=== PATIENT | female | born 1940 | race African-American/Black ===

== ENCOUNTER 2016-10-31 15:32 | Emergency (ER) | payer OTHER ==
[2016-10-31 15:39] VITALS: PULSE 79; TEMP 98.2; BMI 18.6
--- NOTE | 2016-10-31 16:43 | PDOC ---
History of Present Illness - General Chief Complaint: Edema Stated Complaint: SWELLING IN RT LEG/SENT BY PMD Time Seen by Provider: 10/31/16 16:41 History Source: Patient Exam Limitations: No Limitations - History of Present Illness Initial Comments: 10/31/16 16:42 CHIEF COMPLAINT: Leg swelling HISTORY OF PRESENT ILLNESS: This is a 76 year old female with a history of HTN, HLD, and advanced dementia brought in by her daughter for evaluation of several weeks of progressive RLE edema. She has not had any apparent shortness of breath , chest pain, or any other symptoms. V/s on arrival are unremarkable. REVIEW OF SYSTEMS: Limited by dementia PHYSICAL EXAM: GENERAL: The patient is awake, alert, oriented x 0 (baseline). HEAD: Normal with no signs of trauma. ENT: Pupils equal, round and reactive to light, extraocular movements intact, sclera anicteric, conjunctiva clear. Neck supple. LUNGS: Clear to auscultation bilaterally. Normal excursion. No respiratory distress or use of accessory muscles. CV: RRR, S1/S2, no MRG. Cap refill < 2 sec. ABDOMEN: Soft, non-distended, non-tender. EXTREMITIES: RLE 2+ pitting edema, mild calf tenderness. NEUROLOGICAL: Normal speech, normal gait. CN II-XII grossly intact. PSYCH: Normal mood, normal affect. SKIN: Warm, dry, normal turgor, no rashes or lesions noted. Past History - Past Medical History Allergies/Adverse Reactions: Allergies Allergy/AdvReac Type Severity Reaction Status Date / Time codeine Allergy Verified 10/31/16 15:39 Home Medications: Ambulatory Orders Aspirin [Ecotrin] 81 mg PO DAILY 05/13/15 Anemia: No Asthma: No Cancer: No Cardiac Disorders: Yes CVA: No COPD: No CHF: No Dementia: Yes Diabetes: No Dialysis: No GI Disorders: No Disorders: No HTN: Yes Hypercholesterolemia: No HIV: No Kidney Stones: No Liver Disease: No Psychiatric Problems: (dementia, non-verbal) Seizures: No Thyroid Disease: No Other medical history: DVT - Surgical History Abdominal Surgery: No Appendectomy: No Cardiac Surgery: No Cholecystectomy: No Lung Surgery: No Neurologic Surgery: No Orthopedic Surgery: No - Immunization History Immunization Up to Date: Yes - Psycho/Social/Smoking Cessation Hx Anxiety: No Suicidal Ideation: No Smoking Status: No Smoking History: Never smoked Have you smoked in the past 12 months: Yes Number of Cigarettes Smoked Daily: 0 Information on smoking cessation initiated: No Hx Alcohol Use: No Drug/Substance Use Hx: No Substance Use Type: None Hx Substance Use Treatment: No *Physical Exam - Vital Signs Last Vital Signs Temp Pulse Resp BP Pulse Ox 98.2 F 79 19 138/78 95 10/31/16 15:35 10/31/16 15:35 10/31/16 15:35 10/31/16 15:35 10/31/16 15:35 ED Treatment Course - LABORATORY CBC & Chemistry Diagram: 10/31/16 17:30 10/31/16 17:30 Medical Decision Making - Medical Decision Making 10/31/16 19:19 A/P: 76 year old female with unilateral LE edema. 1. Basic labs 2. Duplex vascular u/s to r/o DVT U/s reviewed and interpreted by radiology. Will dc with PCP followup and return precautions. *DC/Admit/Observation/Transfer Diagnosis at time of Disposition: Dependent edema, Edema of right lower extremity - Discharge Dispostion Admit: No - Referrals Referrals: Renato Martinez MD [Primary Care Provider] - 3 days - Patient Instructions Printed Discharge Instructions: DI for Dependent Edema Additional Instructions: -Ms. Pugh was seen today for leg swelling. Her ultrasound did not show any blood clots. -Rest with the leg elevated. -Try compression stockings to help relieve the swelling. -Return here for shortness of breath or any other new or concerning symptoms.
[2016-10-31] MEDS ORDERED: ACETAMINOPHEN 325 MG TABLET (FP) PO ONE (17:15)
[2016-10-31] MEDS ORDERED: ACETAMINOPHEN 160 MG/5 ML 473ML BULK BOTTLE ONE (17:34)
[2016-10-31 17:35] LABS: BASOPHIL 0.9 % (0-2.0); EOSINOPHIL 1.5 % (0-4.5); MCH 29.7 pg (25.7-33.7); MCHC 31.8 g/dl (32.0-36.0); MEAN CELL VOLUME 93.4 fl (80-96); MEAN PLT VOLUME 9.5 fl (7.5-11.1); NEUTROPHILS 48.5 % (42.8-82.8); PLATELET COUNT 201 K/MM3 (134-434); WHITE BLOOD COUNT 4.1 K/mm3 (4.0-10.0)
[2016-10-31 17:53] LABS: INR 0.95 (0.82-1.09); PROTHROMBIN TIME (PATIENT) 10.4 SEC (9.98-11.88)
[2016-10-31 18:00] LABS: ALBUMIN 3.1 g/dl (3.4-5.0); ALK PHOS 69 U/L (45-117); ANION GAP 3 (8-16); BILIRUBIN,TOTAL 0.3 mg/dL (0.2-1.0); CALCIUM 9.6 mg/dL (8.5-10.1); CO2 32 mmol/L (21-32); GLUCOSE,RANDOM 81 mg/dL (74-106); SGOT/AST 14 U/L (15-37); SGPT/ALT 20 U/L (12-78); TOT PROT 7.1 g/dl (6.4-8.2)
[2016-10-31 19:45] VITALS: BP 160/86
== END 2016-10-31 19:50 | disposition home or self-care (01) ==
LOC: JER 15:32
DX: R60.0 Localized edema (principal); I10 Essential (primary) hypertension; E78.5 Hyperlipidemia, unspecified; F03.90 Unspecified dementia, unspecified severity, without behavioral disturbance, psychotic disturbance, mood disturbance, and anxiety; Z88.5 Allergy status to narcotic agent; Z79.82 Long term (current) use of aspirin; Z86.718 Personal history of other venous thrombosis and embolism
CPT/HCPCS: 36415; 80053; 85025; 85610; 93971-TC; 99282-25

== ENCOUNTER 2018-03-08 13:50 | Inpatient (IN) | payer OTHER ==
--- NOTE | 2018-03-08 14:02 | PDOC ---
History of Present Illness - General History Source: Family Exam Limitations: Dementia - History of Present Illness Initial Comments: 03/08/18 14:41 CC: AMS HPI/ROS performed with daughter, pt is nonverbal at baseline. HPI: 77 year old female with PMH HTN, DVT, dementia BIBA to ED by daughter ( piercer operator) for AMS. Per daughter pt's baseline is alert but orientedx0, nonverbal, ambulates with assistance. Daughter stated that over the last week pt has become more generally weak and this morning at 0600 pt was more sleepy and less alert. Daughter states pt has multiple areas of skin breakdown, bilateral hips and sacrum. Pt lives at home with daughter. Daughter stated last week while being assisted by pt's son, the son and pt fell to the ground, daughter was not present and is unsure of head injury/LOC. <Sadie Lee - Last Filed: 03/10/18 01:54> <Lizzette Marie - Last Filed: 03/12/18 09:25> - General Chief Complaint: Altered Mental Status Stated Complaint: AMS Time Seen by Provider: 03/08/18 14:02 Past History - Past Medical History Anemia: No Asthma: No Cancer: No Cardiac Disorders: Yes CVA: No COPD: No CHF: No Dementia: Yes Diabetes: No Dialysis: No GI Disorders: No Disorders: No HTN: Yes Hypercholesterolemia: No Kidney Stones: No Liver Disease: No Psychiatric Problems: (dementia, non-verbal) Seizures: No Thyroid Disease: No - Surgical History Abdominal Surgery: No Appendectomy: No Cardiac Surgery: No Cholecystectomy: No Lung Surgery: No Neurologic Surgery: No Orthopedic Surgery: No - Immunization History Immunization Up to Date: Yes - Suicide/Smoking/Psychosocial Hx Smoking Status: No Smoking History: Never smoked Have you smoked in the past 12 months: Yes Number of Cigarettes Smoked Daily: 0 Hx Alcohol Use: No Drug/Substance Use Hx: No Substance Use Type: None Hx Substance Use Treatment: No <Sadie Lee - Last Filed: 03/10/18 01:54> <Lizzette Marie - Last Filed: 03/12/18 09:25> - Past Medical History Allergies/Adverse Reactions: Allergies Allergy/AdvReac Type Severity Reaction Status Date / Time codeine Allergy Verified 10/31/16 15:39 Home Medications: Ambulatory Orders Aspirin [Ecotrin] 81 mg PO DAILY 05/13/15 Review of Systems - Review of Systems Able to Perform ROS?: Yes Comments:: 03/08/18 14:45 Unable to perform complete ROS, pt is nonverbal. <Sadie Lee - Last Filed: 03/10/18 01:54> *Physical Exam - Physical Exam Comments: 03/08/18 14:47 Constitutional: contracted. cachectic. HEENT: head is normocephalic, atraumatic. PERRLA. Neck: supple. Full ROM. no midline c-spine tenderness. Heart: regular rhythm. no murmurs, rubs or gallops. Lungs: clear to auscultation bilaterally. Abdomen: soft, nontender. normal bowel sounds. no rebound, guarding, masses. Back: no midline T-spine or L-spine tenderness. Extremities: Peripheral pulses intact. No lower extremity edema. Neurological: CN 2-12 grossly intact. Moves all four extremities. Psych: somnolent, but arousable to touch. nonverbal. Skin: right hip stage 1 ulcer. lef thip stage 1 ulcer. sacrum two stage 1 ulcers. <Sadie Lee - Last Filed: 03/10/18 01:54> - Vital Signs Last Vital Signs Temp Pulse Resp BP Pulse Ox 98.0 F 67 20 150/68 97 03/12/18 06:00 03/12/18 06:00 03/12/18 06:00 03/12/18 06:00 03/11/18 21:00 <Lizzette Marie - Last Filed: 03/12/18 09:25> Moderate Sedation - Procedure Monitoring Vital Signs: Procedure Monitoring Vital Signs Temperature 98.0 F 03/12/18 06:00 Pulse Rate 67 03/12/18 06:00 Respiratory Rate 20 03/12/18 06:00 Blood Pressure 150/68 03/12/18 06:00 O2 Sat by Pulse Oximetry (%) 97 03/11/18 21:00 <Lizzette Marie - Last Filed: 03/12/18 09:25> ED Treatment Course - LABORATORY CBC & Chemistry Diagram: 03/08/18 14:45 03/08/18 14:45 <Sadie Lee - Last Filed: 03/10/18 01:54> - LABORATORY CBC & Chemistry Diagram: 03/09/18 05:15 03/09/18 05:15 - ADDITIONAL ORDERS Additional order review: 03/08/18 14:45 Blood Culture - Preliminary Blood - Peripheral Venous NO GROWTH OBTAINED AFTER 72 HOURS, INCUBATION TO CONTINUE FOR 2 DAYS. 03/08/18 14:45 Blood Culture - Preliminary Blood - Peripheral Venous NO GROWTH OBTAINED AFTER 72 HOURS, INCUBATION TO CONTINUE FOR 2 DAYS. 03/08/18 18:35 Urine Culture - Final Urine - Urine [place] Escherichia Coli 03/08/18 14:45 RBC 4.49 MCV 93.4 MCHC 31.4 L RDW 12.4 MPV 9.5 Neutrophils % 56.6 Lymphocytes % 30.5 Monocytes % 9.6 Eosinophils % 2.5 Basophils % 0.8 - Medications Given in the ED: ED Medications Discontinued Medications Generic Name Dose Route Start Last Admin Trade Name Freq PRN Reason Stop Dose Admin Heparin Sodium (Porcine) 5,000 unit 03/09/18 10:00 03/09/18 22:48 Heparin - SQ 5,000 unit BID LINDSEY Administration Sodium Chloride 1,000 mls @ 500 mls/hr 03/08/18 14:40 03/08/18 16:01 Normal Saline - IV 03/08/18 16:39 500 mls/hr ASDIR STA Administration Ceftriaxone Sodium 2 gm in 50 mls @ 100 mls/hr 03/08/18 19:24 03/08/18 19:36 Ceftriaxone 2 Gm-D5w Bag IVPB 03/08/18 19:53 100 mls/hr ONCE ONE Administration Protocol Ceftriaxone Sodium 1 gm/ 50 mls @ 100 mls/hr 03/09/18 10:00 03/09/18 10:23 Dextrose IVPB 100 mls/hr DAILY LINDSEY Administration Protocol <Lizzette Marie - Last Filed: 03/12/18 09:25> Medical Decision Making - Medical Decision Making 03/08/18 14:49 MDM: Initial Vital Signs Pulse Resp BP Pulse Ox 78 16 150/89 97 03/08/18 14:00 03/08/18 14:00 03/08/18 14:00 03/08/18 14:00 No tachycardia. No tachypnea. Mild hypertension. No hypoxia on room air. Labs ordered: CBC, CMP, coags, cardiac enzymes. Imaging ordered: CXR, CT head, CT cervical spine. Medications ordered: 500 cc normal saline bolus. EKG performed at 1442: rate 66, regular rhythm with one PAC, normal axis, flipped T in V4/V5/V6/I. CBC WBC 4.6 K/mm3 (4.0-10.0) 03/08/18 14:45 RBC 4.49 M/mm3 (3.60-5.2) 03/08/18 14:45 Hgb 13.2 GM/dL (10.7-15.3) 03/08/18 14:45 Hct 41.9 % (32.4-45.2) 03/08/18 14:45 MCV 93.4 fl (80-96) 03/08/18 14:45 MCH 29.3 pg (25.7-33.7) 03/08/18 14:45 MCHC 31.4 g/dl (32.0-36.0) L 03/08/18 14:45 RDW 12.4 % (11.6-15.6) 03/08/18 14:45 Plt Count 213 K/MM3 (134-434) 03/08/18 14:45 MPV 9.5 fl (7.5-11.1) 03/08/18 14:45 Absolute Neuts (auto) 2.6 K/mm3 (1.5-8.0) 03/08/18 14:45 Neutrophils % 56.6 % (42.8-82.8) 03/08/18 14:45 Lymphocytes % 30.5 % (8-40) 03/08/18 14:45 Monocytes % 9.6 % (3.8-10.2) 03/08/18 14:45 Eosinophils % 2.5 % (0-4.5) 03/08/18 14:45 Basophils % 0.8 % (0-2.0) 03/08/18 14:45 Nucleated RBC % 0 % (0-0) 03/08/18 14:45 No leukocytosis. No anemia. No thrombocytopenia. CMP Sodium 142 mmol/L (136-145) 03/08/18 14:45 Potassium 4.5 mmol/L (3.5-5.1) 03/08/18 14:45 Chloride 109 mmol/L (98-107) H 03/08/18 14:45 Carbon Dioxide 24 mmol/L (21-32) 03/08/18 14:45 Anion Gap 8 MMOL/L (8-16) 03/08/18 14:45 BUN 13 mg/dL (7-18) 03/08/18 14:45 Creatinine 0.8 mg/dL (0.55-1.3) 03/08/18 14:45 Creat Clearance w eGFR > 60 (>60) 03/08/18 14:45 Random Glucose 81 mg/dL (74-106) 03/08/18 14:45 Lactic Acid 1.4 mmol/L (0.4-2.0) 03/08/18 14:45 Calcium 9.2 mg/dL (8.5-10.1) 03/08/18 14:45 Magnesium 2.1 mg/dL (1.8-2.4) 03/08/18 14:45 Total Bilirubin 0.6 mg/dL (0.2-1) 03/08/18 14:45 AST 22 U/L (15-37) 03/08/18 14:45 ALT 13 U/L (13-61) 03/08/18 14:45 Alkaline Phosphatase 53 U/L (45-117) 03/08/18 14:45 Creatine Kinase 139 IU/L (26-192) 03/08/18 14:45 Troponin I < 0.02 ng/ml (0.00-0.05) 03/08/18 14:45 Total Protein 7.0 g/dl (6.4-8.2) 03/08/18 14:45 Albumin 2.8 g/dl (3.4-5.0) L 03/08/18 14:45 No clinically concerning electrolyte abnormalities. No transaminitis. No JAELYN. Normal cardiac enzymes. No clinically concerning transaminitis. No lactic acidosis. 03/08/18 18:10 Nurse reported pt is catheterized, but no urine has been expressed. Fluids running. 03/08/18 18:32 CT head report: no intracranial bleed or depressed skull fracture. ventriculomegaly with normal fourth ventricle and prominent sulcal dilation, likely representing cerebral atrophy. probable associated periventricular white matter small vessel ischemic disease. CXR my read: no infiltrate. no pneumothorax. no blunted costophrenic angles. Knee XR my read: no fracture/dislocation. joint effusion noted. Pelvis XR my read: no fracture/dislocation. 03/08/18 18:58 CT cervical spine report: no fracture. 03/08/18 19:16 Urine Test Results Urine Color Yellow 03/08/18 18:35 Urine Appearance Slcloudy 03/08/18 18:35 Urine pH 5.0 (5.0-8.0) 03/08/18 18:35 Ur Specific [place] 1.018 (1.010-1.035) 03/08/18 18:35 Urine Protein Negative (NEGATIVE) 03/08/18 18:35 Urine Glucose (UA) Negative (NEGATIVE) 03/08/18 18:35 Urine Ketones Trace (NEGATIVE) H 03/08/18 18:35 Urine Blood 1+ (NEGATIVE) H 03/08/18 18:35 Urine Nitrite Positive (NEGATIVE) 03/08/18 18:35 Urine Bilirubin Negative (<2.0 mg/dL) 03/08/18 18:35 Ur Leukocyte Esterase 2+ (NEGATIVE) H 03/08/18 18:35 WBC 77 Pt has UTI - Ceftriaxone 1 g ordered. 03/08/18 19:37 Results explained to pt's daughter, who agrees with the plan for care, admission for IV antibiotics and monitoring. Pt to be admitted to Dr. Wellington, who covers for Dr. Renato Martinez. Dr. Wellington paged. <Sadie Lee - Last Filed: 03/10/18 01:54> *DC/Admit/Observation/Transfer - Discharge Dispostion Decision to Admit order: Yes <Sadie Lee - Last Filed: 03/10/18 01:54> <Lizzette Marie - Last Filed: 03/12/18 09:25> Diagnosis at time of Disposition: Urinary tract infection Qualifiers: Urinary tract infection type: site unspecified Hematuria presence: without hematuria Qualified Code(s): N39.0 - Urinary tract infection, site not specified Altered mental status Qualifiers: Altered mental status type: unspecified Qualified Code(s): R41.82 - Altered mental status, unspecified - Discharge Dispostion Condition at time of disposition: Stable
[2018-03-08 14:05] VITALS: BMI 18.3
[2018-03-08] MEDS ORDERED: SODIUM CHLORIDE 1,000 ML IV STA (14:40)
--- NOTE | 2018-03-08 15:29 | PDOC ---
Attending Attestation - Resident Resident Name: Sadie Lee - ED Attending Attestation I have performed the following: I have examined & evaluated the patient, The case was reviewed & discussed with the resident, I agree w/resident's findings & plan, Exceptions are as noted - HPI HPI: 77 yo F history HTN, DVT, dementia BIBEMS by daughter for c/o AMS. Patient is alert and nonverbal at baseline. She walks with assistance, but this past week she has been weaker, had a fall. Lives with daughter. - Physicial Exam PE: GENERAL: Awake, alert, no acute distress. Nonverbal. HEAD: No signs of trauma EYES: PERRLA, EOMI, sclera anicteric, conjunctiva clear ENT: Auricles normal inspection, hearing grossly normal, nares patent, oropharynx clear without exudates. Dry mucosa NECK: Normal ROM, supple, no lymphadenopathy, JVD, or masses LUNGS: Breath sounds equal, clear to auscultation bilaterally. No wheezes, and no crackles HEART: Regular rate and rhythm, normal S1 and S2, no murmurs, rubs or gallops ABDOMEN: Soft, nontender, normoactive bowel sounds. No guarding, no rebound. No masses EXTREMITIES: Normal range of motion, no edema. No clubbing or cyanosis. No cords, erythema, or tenderness NEUROLOGICAL: Cranial nerves II through XII grossly intact. Remainder of exam limited by mental status. SKIN: Warm, Dry, normal turgor. - Medical Decision Making Pt with AMS, increased weakness from baseline. Will obtain AMS workup including CTH (as well as c-spine due to recent fall), CXR, UA, labs.
[2018-03-08 15:37] LABS: BASO % 0.8 % (0-2.0); EOS % 2.5 % (0-4.5); HEMATOCRIT 41.9 % (32.4-45.2); HEMOGLOBIN 13.2 GM/dL (10.7-15.3); LYMPH % 30.5 % (8-40); MCH 29.3 pg (25.7-33.7); MCHC 31.4 g/dl (32.0-36.0); MEAN CELL VOLUME 93.4 fl (80-96); MEAN PLT VOLUME 9.5 fl (7.5-11.1); MONO % 9.6 % (3.8-10.2); NEUT % 56.6 % (42.8-82.8); PLATELET COUNT 213 K/MM3 (134-434); RBC 4.49 M/mm3 (3.60-5.2); RDW 12.4 % (11.6-15.6); WHITE BLOOD COUNT 4.6 K/mm3 (4.0-10.0)
[2018-03-08 15:48] LABS: INR 1.04 (0.83-1.09); PROTHROMBIN TIME (PATIENT) 12.3 SEC (9.7-13.0)
[2018-03-08 15:51] LABS: ACTIVATED PTT 33.2 SECONDS (25.2-36.5)
[2018-03-08 15:58] LABS: ALBUMIN 2.8 g/dl (3.4-5.0); ALK PHOS 53 U/L (45-117); ANION GAP 8 MMOL/L (8-16); BILIRUBIN,TOTAL 0.6 mg/dL (0.2-1); BLOOD UREA NITROGEN 13 mg/dL (7-18); CALCIUM 9.2 mg/dL (8.5-10.1); CHLORIDE 109 mmol/L (98-107); CO2 24 mmol/L (21-32); CREATININE 0.8 mg/dL (0.55-1.3); GLUCOSE,RANDOM 81 mg/dL (74-106); MAGNESIUM 2.1 mg/dL (1.8-2.4); POTASSIUM 4.5 mmol/L (3.5-5.1); SGOT/AST 22 U/L (15-37); SGPT/ALT 13 U/L (13-61); SODIUM 142 mmol/L (136-145)
[2018-03-08 19:15] LABS: URINE APPEARANCE SLCLOUDY; URINE BILIRUBIN NEGATIVE (<2.0 mg/dL); URINE COLOR YELLOW; URINE GLUCOSE (UA) NEGATIVE (NEGATIVE); URINE KETONE TRACE (NEGATIVE); URINE LEUK ESTERASE 2+ (NEGATIVE); URINE NITRITE POSITIVE (NEGATIVE); URINE PROTEIN NEGATIVE (NEGATIVE)
[2018-03-08 19:22] LABS: EPI CELLS RARE /HPF (FEW); URINE BACTERIA MANY /hpf (NONE SEEN); URINE MUCUS FEW
[2018-03-08] MEDS ORDERED: CEFTRIAXONE 2 GM-D5W BAG 2 GM/50 ML BAG IVPB ONE (19:24)
[2018-03-08] MEDS ORDERED: CEFTRIAXONE 2 GM/100 ML BAG IVPB ONE (19:30)
[2018-03-09] MEDS: DEXTROSE 5%-0.45% SALINE 1,000 ML IV SCH (03:23)
[2018-03-09 05:38] LABS: HEMATOCRIT 41.9 % (32.4-45.2); HEMOGLOBIN 13.2 GM/dL (10.7-15.3); MCH 29.4 pg (25.7-33.7); MCHC 31.6 g/dl (32.0-36.0); MEAN CELL VOLUME 93.2 fl (80-96); MEAN PLT VOLUME 9.3 fl (7.5-11.1); MONO % 8.3 % (3.8-10.2); NEUT % 53.7 % (42.8-82.8); PLATELET COUNT 197 K/MM3 (134-434); RBC 4.49 M/mm3 (3.60-5.2); RDW 12.5 % (11.6-15.6); WHITE BLOOD COUNT 4.6 K/mm3 (4.0-10.0)
[2018-03-09 06:24] LABS: ALBUMIN 2.7 g/dl (3.4-5.0); ALK PHOS 53 U/L (45-117); ANION GAP 7 MMOL/L (8-16); BILIRUBIN,TOTAL 0.4 mg/dL (0.2-1); BLOOD UREA NITROGEN 12 mg/dL (7-18); CHLORIDE 109 mmol/L (98-107); CO2 26 mmol/L (21-32); CREATININE 0.8 mg/dL (0.55-1.3); GLUCOSE,RANDOM 80 mg/dL (74-106); POTASSIUM 4.2 mmol/L (3.5-5.1); SGOT/AST 18 U/L (15-37); SGPT/ALT 12 U/L (13-61); SODIUM 143 mmol/L (136-145); TOT PROT 6.7 g/dl (6.4-8.2)
[2018-03-09] MEDS ORDERED: CEFTRIAXONE 1 GM in DEXTROSE 5%-WATER - 50 ML IVPB SCH (10:00)
[2018-03-09] MEDS: ASPIRIN COATED 81 MG TABLET.EC PO SCH (10:00)
[2018-03-09] MEDS ORDERED: CEFTRIAXONE 1 GM/50 ML BAG ONE (10:06)
[2018-03-09] MEDS ORDERED: HEPARIN NA (PORCINE) 5,000 UNITS/ML 1ML VIAL ONE (10:06)
[2018-03-09] MEDS: HEPARIN NA (PORCINE) 5,000 UNITS/ML 1ML VIAL SQ SCH ×2 (10:22→22:48)
--- NOTE | 2018-03-09 11:17 | ECHO ---
Name: ALEJANDRO GARNICA Exam:Adult Echocardiogram Study Date: 03/09/2018 08:24 AM Age: 77 yrs Reason For Study: HTN Height: 65 in Weight: 110 lb BSA: 1.5 m2 MMode/2D Measurements & Calculations IVSd: 1.5 cm Ao root diam: 2.8 cm LVIDd: 2.9 cm LA dimension: 2.8 cm LVIDs: 1.8 cm LVPWd: 0.89 cm EDV(Teich): 31.9 ml LAV (MOD-bp): 50.2 ml ESV(Teich): 9.9 ml Doppler Measurements & Calculations MV E max tiana: 58.2 cm/sec AI P1/2t: 688.1 msec MV A max tiana: 79.1 cm/sec MV E/A: 0.74 MV dec time: 0.13 sec AI max tiaan: 477.8 cm/sec PI end-d tiana: 126.2 cm/sec AI max P.3 mmHg AI dec slope: 203.4 cm/sec2 Procedure A complete two-dimensional transthoracic echocardiogram was performed (2D, M-mode, Doppler and color flow Doppler). Techically limited study. Left Ventricle The left ventricle is normal in size. There is mild concentric left ventricular hypertrophy. Basal se ptum appears moderately hypertrophied. Left ventricular systolic function is normal. Ejection Fraction = 6 5-70%. No regional wall motion abnormalities noted. Right Ventricle The right ventricle is normal size. The right ventricular systolic function is normal. Atria The left atrial size is normal. LA volume index is 33 ml/m2. Right atrial size is normal. Mitral Valve The mitral valve is normal in structure and function. There is mild mitral regurgitation. Tricuspid Valve The tricuspid valve is normal in structure and function. No tricuspid regurgitation. Aortic Valve There is mild aortic sclerosis.;. Mild aortic regurgitation. Pulmonic Valve The pulmonic valve is not well visualized. Mild pulmonic valvular regurgitation. Great Vessels The aortic root is normal size. Pericardium/Pleura There is no pericardial effusion. Interpretation Summary Techically limited study. The left ventricle is normal in size. There is mild concentric left ventricular hypertrophy. Basal septum appears moderately hypertrophied Left ventricular systolic function is normal. No regional wall motion abnormalities noted. Ejection Fraction = 65-70%. The right ventricular systolic function is normal. The left atrial size is normal. Right atrial size is normal. There is mild mitral regurgitation. There is mild aortic sclerosis.; Mild aortic regurgitation. Mild pulmonic valvular regurgitation. There is no pericardial effusion. Previous study is not available for comparison Ran Ching MD 03/09/2018 11:17 AM
--- NOTE | 2018-03-09 14:09 | HP ---
Admitting History and Physical - Admission History of Present Illness: Pt is a 77 y/o female w/ PMH significant for HTN, HLD, DVT and dementia. Pt was BIBEMS by daughter for c/o AMS. Patient is alert but is nonverbal at baseline. She ambulates with assistance, but this past week she has been weaker. Pt's daughter feels that there has been in a change in pt's baseline including lethargy since the am. Lisa also reports that pt had episode of falling at home but unsure if there was only LOC/head trauma. - Past Medical History ART MANAGER: Yes: Alzheimer's Cardiovascular: Yes: HTN, Hyperlipdemia Musculoskeletal: Yes: Other (Mandibular fx) Endocrine: Yes: Osteopenia - Past Surgical History Past Surgical History: Yes: None - Smoking History Smoking history: Never smoked Have you smoked in the past 12 months: Yes Aproximately how many cigarettes per day: 0 - Alcohol/Substance Use Hx Alcohol Use: No - Social History ADL: Family Assistance Home Medications - Allergies Allergies/Adverse Reactions: Allergies Allergy/AdvReac Type Severity Reaction Status Date / Time codeine Allergy Verified 10/31/16 15:39 - Home Medications Home Medications: Ambulatory Orders Aspirin [Ecotrin] 81 mg PO DAILY 05/13/15 Family Disease History - Family Disease History Family History: Unable to Obtain Review of Systems Unable to obtain ROS, reason: Dementia Physical Examination Vital Signs: Vital Signs Temperature 98.9 F 03/09/18 11:03 Pulse Rate 73 03/09/18 07:02 Respiratory Rate 18 03/08/18 18:04 Blood Pressure 138/75 03/09/18 07:02 O2 Sat by Pulse Oximetry (%) 99 03/09/18 07:02 Constitutional: Yes: No Distress HENT: Yes: WNL Neck: Yes: WNL, Supple Cardiovascular: Yes: WNL, Regular Rate and Rhythm Respiratory: Yes: WNL, Regular, CTA Bilaterally Gastrointestinal: Yes: WNL, Normal Bowel Sounds, Soft Musculoskeletal: Yes: WNL Extremities: Yes: WNL Edema: No Neurological: Yes: Alert ...Motor Strength: WNL Labs: CBC, BMP 03/09/18 05:15 03/09/18 05:15 Problem List - Problems (1) Altered mental status Assessment/Plan: Ct scan head was unremarkable ?Cerebral dysfunction vs dementia Neuro consult Cont IV hydration R/O infectious encepalopathy PT eval Code(s): R41.82 - ALTERED MENTAL STATUS, UNSPECIFIED Qualifiers: (2) Urinary tract infection Assessment/Plan: Cont IV ceftriaxone Monitor cultures Code(s): N39.0 - URINARY TRACT INFECTION, SITE NOT SPECIFIED (3) Dementia Code(s): F03.90 - UNSPECIFIED DEMENTIA WITHOUT BEHAVIORAL DISTURBANCE Qualifiers: Dementia type: Alzheimer's disease Alzheimer's disease onset: unspecified onset Dementia behavioral disturbance: with behavioral disturbance Qualified Code(s): G30.9 - Alzheimer's disease, unspecified; F02.81 - Dementia in other diseases classified elsewhere with behavioral disturbance (4) Hypertension Assessment/Plan: Pt is not on any antihypertensives Will check echo Start norvasc Code(s): I10 - ESSENTIAL (PRIMARY) HYPERTENSION (5) Hyperlipidemia Assessment/Plan: Check lipid profile Code(s): E78.5 - HYPERLIPIDEMIA, UNSPECIFIED
--- NOTE | 2018-03-09 16:22 | CON.ID ---
Consult Consult Specialty:: infectious diseases Referred by:: Reason for Consultation:: ams,r/o infectious process - History of Present Illness Chief Complaint: ams History of Present Illness: patient awake but no history available from the patient which is obtained from the charts 77 y/o female w/ PMH significant for HTN, HLD, DVT and dementia. Pt was BIBEMS by daughter for c/o AMS. Patient is alert but is nonverbal at baseline. She ambulates with assistance, but this past week she has been weaker. Pt's daughter feels that there has been in a change in pt's baseline including lethargy since the am. Daughter also reports that pt had episode of falling at home but unsure if there was only LOC/head trauma. 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 Cardio/Vascular: Yes: HTN, Hyperlipdemia Musculoskeletal: Yes: Other (Mandibular fx) Endocrine: Yes: Osteopenia - Past Surgical History Past Surgical History: Yes: None - Alcohol/Substance Use Hx Alcohol Use: No - Smoking History Smoking history: Never smoked Have you smoked in the past 12 months: Yes Aproximately how many cigarettes per day: 0 - Social History ADL: Family Assistance Home Medications - Allergies Allergies/Adverse Reactions: Allergies Allergy/AdvReac Type Severity Reaction Status Date / Time codeine Allergy Verified 10/31/16 15:39 - Home Medications Home Medications: Ambulatory Orders Aspirin [Ecotrin] 81 mg PO DAILY 05/13/15 Review of Systems Unable to obtain ROS, reason: unable to obtain Physical Exam Vital Signs: Vital Signs Temperature 98.9 F 03/09/18 11:03 Pulse Rate 80 03/09/18 15:24 Respiratory Rate 16 03/09/18 15:24 Blood Pressure 162/93 03/09/18 15:24 O2 Sat by Pulse Oximetry (%) 98 03/09/18 15:24 Constitutional: Yes: Calm, Thin, Other Eyes: Yes: Conjunctiva Clear Cardiovascular: Yes: Regular Rate and Rhythm Respiratory: Yes: Regular, CTA Bilaterally Gastrointestinal: Yes: Normal Bowel Sounds, Soft Musculoskeletal: Yes: WNL Extremities: Yes: WNL Neurological: Yes: Alert, Confusion Psychiatric: Yes: Other Labs: CBC, BMP 03/09/18 05:15 03/09/18 05:15 Imaging - Results Chest X-ray: Report Reviewed, Image Reviewed Cat Scan: Report Reviewed, Image Reviewed Assessment/Plan Problem List - Problems (1) Altered mental status Code(s): R41.82 - ALTERED MENTAL STATUS, UNSPECIFIED Qualifiers: (2) Urinary tract infection Code(s): N39.0 - URINARY TRACT INFECTION, SITE NOT SPECIFIED (3) Dementia Code(s): F03.90 - UNSPECIFIED DEMENTIA WITHOUT BEHAVIORAL DISTURBANCE Qualifiers: Dementia type: Alzheimer's disease Alzheimer's disease onset: unspecified onset Dementia behavioral disturbance: with behavioral disturbance Qualified Code(s): G30.9 - Alzheimer's disease, unspecified; F02.81 - Dementia in other diseases classified elsewhere with behavioral disturbance (4) Hypertension Code(s): I10 - ESSENTIAL (PRIMARY) HYPERTENSION (5) Hyperlipidemia Code(s): E78.5 - HYPERLIPIDEMIA, UNSPECIFIED as far i thin this is probably due uti plan will start patient on abx await for cx report hydration rest as per the team
--- NOTE | 2018-03-09 21:36 | CONSULT ---
Consult - text type - Consultation Consultation Note: NEUROLOGY CONSULTATION is greatly appreciated: This 77 yo woman with HTN, Hyperlipidemia and severe dementia lives with her daughter. Apparently is non-verbal and walks with assistance only. Family relates a week of worsening alertness and level of function culminating in a fall on day of admission while ambulating with her son. In ED CT of head (reviewed): severe, diffuse atrophy and moderately severe, ex- vacuo, hydrocephalus. No traumatic changes. CT of C-spine (not yet reported) shows moderate degenerative changes without fractures or dislocations. Urine WBC's = 77. Started on ceftriaxone. NEETA: No evidence of external head trauma. - Coleman's. Early contractures both elbows and knees. Sacral decubitae. In diaper NEURO: Rest with eyes closed but awake and alert. Makes eye contact. Follows no commands. Brief gibberish speech. + Glabella, snout, suck, grasps (symmetrical). Full rivero to threat. Full roving EOM's. No facial. Gag present. Moves all 4's spontaneously and symmetrically. Symmetrical, Rigid, tone. Normal to brisk reflexes except AJ's. Downgoing toes. Withdraws all fours to pinch. IMP: Non-focal exam sig for severe, B/L cerebral dysfunction (OMS, Chronic) most c/w advanced Alzheimer's Disease. Recent worsening is due to Toxic-Metabolic Encephalopathy due to infection (UTI/decubitae). SUGGEST: Continue antibiotics and hydration. Review history of possible medication trials for dementia ( although doubt efficacy at this late stage). Check B12, TSH, RPR. May need SNF level of care. Thank you very much, Jarvis Franklin MD
[2018-03-10] MEDS: DEXTROSE 5%-0.45% SALINE 1,000 ML IV SCH ×2 (06:07→21:15)
[2018-03-10] MEDS: HEPARIN NA (PORCINE) 5,000 UNITS/ML 1ML VIAL SQ SCH ×3 (06:08→21:16)
[2018-03-10] MEDS ORDERED: cefTRIAXone SODIUM 1 GM VIAL ONE (09:54)
[2018-03-10] MEDS ORDERED: DEXTROSE 5%-WATER - 50 ML IVPB ONE (09:54)
[2018-03-10] MEDS: ASPIRIN COATED 81 MG TABLET.EC PO SCH (09:57)
[2018-03-10] MEDS: CEFTRIAXONE 1 GM in DEXTROSE 5%-WATER - 50 ML IVPB SCH (09:57)
[2018-03-10] MEDS: amLODIPine BESYLATE 2.5 MG TABLET (FP) PO SCH (09:57)
--- NOTE | 2018-03-10 14:17 | PN ---
Progress Note, Physician History of Present Illness: stable positive urine cx - Current Medication List Current Medications: Active Medications Amlodipine Besylate (Norvasc -) 2.5 mg PO DAILY [facility] Last Admin: 03/10/18 09:57 Dose: 2.5 mg Aspirin (Ecotrin -) 81 mg PO DAILY [facility] Last Admin: 03/10/18 09:57 Dose: 81 mg Heparin Sodium (Porcine) (Heparin -) 5,000 unit SQ TID [facility] Last Admin: 03/10/18 06:08 Dose: 5,000 unit Dextrose/Sodium Chloride (D5-1/2ns -) 1,000 mls @ 75 mls/hr IV ASDIR [facility] Last Admin: 03/10/18 06:07 Dose: 75 mls/hr Ceftriaxone Sodium 1 gm/ (Dextrose) 50 mls @ 100 mls/hr IVPB DAILY [facility]; Protocol Last Admin: 03/10/18 09:57 Dose: 100 mls/hr - Objective Vital Signs: Vital Signs Temperature 98.3 F 03/10/18 09:48 Pulse Rate 67 03/10/18 09:48 Respiratory Rate 18 03/10/18 09:48 Blood Pressure 137/65 03/10/18 09:48 O2 Sat by Pulse Oximetry (%) 97 03/10/18 09:00 Constitutional: Yes: No Distress, Calm Cardiovascular: Yes: Regular Rate and Rhythm Respiratory: Yes: Regular, CTA Bilaterally Gastrointestinal: Yes: Normal Bowel Sounds, Soft Musculoskeletal: Yes: WNL Extremities: Yes: WNL Neurological: Yes: Alert, Other Psychiatric: Yes: Alert Labs: CBC, BMP 03/09/18 05:15 03/09/18 05:15 INR, PTT INR 1.04 (0.83-1.09) 03/08/18 14:45 Assessment/Plan Problem List - Problems (1) Altered mental status Code(s): R41.82 - ALTERED MENTAL STATUS, UNSPECIFIED Qualifiers: (2) Urinary tract infection Code(s): N39.0 - URINARY TRACT INFECTION, SITE NOT SPECIFIED (3) Dementia Code(s): F03.90 - UNSPECIFIED DEMENTIA WITHOUT BEHAVIORAL DISTURBANCE Qualifiers: Dementia type: Alzheimer's disease Alzheimer's disease onset: unspecified onset Dementia behavioral disturbance: with behavioral disturbance Qualified Code(s): G30.9 - Alzheimer's disease, unspecified; F02.81 - Dementia in other diseases classified elsewhere with behavioral disturbance (4) Hypertension Code(s): I10 - ESSENTIAL (PRIMARY) HYPERTENSION (5) Hyperlipidemia Code(s): E78.5 - HYPERLIPIDEMIA, UNSPECIFIED as far i thin this is probably due uti plan ct current abx await for identification report rest as per the team mental status
--- NOTE | 2018-03-10 19:46 | PN ---
Progress Note, Physician History of Present Illness: No new changes - Current Medication List Current Medications: Active Medications Amlodipine Besylate (Norvasc -) 2.5 mg PO DAILY [facility] Last Admin: 03/10/18 09:57 Dose: 2.5 mg Aspirin (Ecotrin -) 81 mg PO DAILY [facility] Last Admin: 03/10/18 09:57 Dose: 81 mg Heparin Sodium (Porcine) (Heparin -) 5,000 unit SQ TID [facility] Last Admin: 03/10/18 14:15 Dose: 5,000 unit Dextrose/Sodium Chloride (D5-1/2ns -) 1,000 mls @ 75 mls/hr IV [facility] Last Admin: 03/10/18 06:07 Dose: 75 mls/hr Ceftriaxone Sodium 1 gm/ (Dextrose) 50 mls @ 100 mls/hr IVPB DAILY [facility]; Protocol Last Admin: 03/10/18 09:57 Dose: 100 mls/hr - Objective Vital Signs: Vital Signs Temperature 98.2 F 03/10/18 18:54 Pulse Rate 68 03/10/18 18:54 Respiratory Rate 19 03/10/18 18:54 Blood Pressure 151/98 03/10/18 18:54 O2 Sat by Pulse Oximetry (%) 97 03/10/18 09:00 Neck: Yes: WNL, Supple Cardiovascular: Yes: WNL, Regular Rate and Rhythm Respiratory: Yes: WNL, Regular, CTA Bilaterally Labs: CBC, BMP 03/09/18 05:15 03/09/18 05:15 INR, PTT INR 1.04 (0.83-1.09) 03/08/18 14:45 Problem List - Problems (1) Altered mental status Assessment/Plan: Ct scan head was unremarkable ?Cerebral dysfunction vs dementia Cont IV hydration R/O infectious encepalopathy l Code(s): R41.82 - ALTERED MENTAL STATUS, UNSPECIFIED Qualifiers: (2) Urinary tract infection Assessment/Plan: Cont IV ceftriaxone Urine culture (+) for lactose fermenting bacilli Code(s): N39.0 - URINARY TRACT INFECTION, SITE NOT SPECIFIED (3) Dementia Code(s): F03.90 - UNSPECIFIED DEMENTIA WITHOUT BEHAVIORAL DISTURBANCE Qualifiers: Dementia type: Alzheimer's disease Alzheimer's disease onset: unspecified onset Dementia behavioral disturbance: with behavioral disturbance Qualified Code(s): G30.9 - Alzheimer's disease, unspecified; F02.81 - Dementia in other diseases classified elsewhere with behavioral disturbance (4) Hypertension Assessment/Plan: [facility] Code(s): I10 - ESSENTIAL (PRIMARY) HYPERTENSION (5) Hyperlipidemia Code(s): E78.5 - HYPERLIPIDEMIA, UNSPECIFIED
[2018-03-11] MEDS: DEXTROSE 5%-0.45% SALINE 1,000 ML IV SCH ×3 (05:19→23:33)
[2018-03-11] MEDS: HEPARIN NA (PORCINE) 5,000 UNITS/ML 1ML VIAL SQ SCH ×3 (06:04→21:19)
[2018-03-11] MEDS ORDERED: DEXTROSE 5%-WATER - 50 ML IVPB ONE (10:11)
[2018-03-11] MEDS ORDERED: cefTRIAXone SODIUM 1 GM VIAL ONE (10:11)
[2018-03-11] MEDS: CEFTRIAXONE 1 GM in DEXTROSE 5%-WATER - 50 ML IVPB SCH (10:18)
[2018-03-11] MEDS: amLODIPine BESYLATE 2.5 MG TABLET (FP) PO SCH (10:18)
[2018-03-11] MEDS: ASPIRIN COATED 81 MG TABLET.EC PO SCH (10:18)
--- NOTE | 2018-03-11 12:46 | PN ---
Progress Note, Physician History of Present Illness: patient stable doing well no issues improving - Current Medication List Current Medications: Active Medications Amlodipine Besylate (Norvasc -) 2.5 mg PO DAILY [facility] Last Admin: 03/11/18 10:18 Dose: 2.5 mg Aspirin (Ecotrin -) 81 mg PO DAILY [facility] Last Admin: 03/11/18 10:18 Dose: 81 mg Heparin Sodium (Porcine) (Heparin -) 5,000 unit SQ TID [facility] Last Admin: 03/11/18 06:04 Dose: 5,000 unit Dextrose/Sodium Chloride (D5-1/2ns -) 1,000 mls @ 75 mls/hr IV [facility] Last Admin: 03/11/18 10:19 Dose: 75 mls/hr Ceftriaxone Sodium 1 gm/ (Dextrose) 50 mls @ 100 mls/hr IVPB DAILY [facility]; Protocol Last Admin: 03/11/18 10:18 Dose: 100 mls/hr - Objective Vital Signs: Vital Signs Temperature 98.3 F 03/11/18 10:00 Pulse Rate 61 03/11/18 10:00 Respiratory Rate 17 03/11/18 10:00 Blood Pressure 144/73 03/11/18 10:00 O2 Sat by Pulse Oximetry (%) 100 03/11/18 09:00 Constitutional: Yes: No Distress, Calm Cardiovascular: Yes: S1, S2 Respiratory: Yes: Regular, CTA Bilaterally Gastrointestinal: Yes: Normal Bowel Sounds, Soft Musculoskeletal: Yes: WNL Extremities: Yes: WNL Neurological: Yes: Alert, Other Labs: CBC, BMP 03/09/18 05:15 03/09/18 05:15 INR, PTT INR 1.04 (0.83-1.09) 03/08/18 14:45 Assessment/Plan Problem List - Problems (1) Altered mental status Code(s): R41.82 - ALTERED MENTAL STATUS, UNSPECIFIED Qualifiers: (2) Urinary tract infection Code(s): N39.0 - URINARY TRACT INFECTION, SITE NOT SPECIFIED (3) Dementia Code(s): F03.90 - UNSPECIFIED DEMENTIA WITHOUT BEHAVIORAL DISTURBANCE Qualifiers: Dementia type: Alzheimer's disease Alzheimer's disease onset: unspecified onset Dementia behavioral disturbance: with behavioral disturbance Qualified Code(s): G30.9 - Alzheimer's disease, unspecified; F02.81 - Dementia in other diseases classified elsewhere with behavioral disturbance (4) Hypertension Code(s): I10 - ESSENTIAL (PRIMARY) HYPERTENSION (5) Hyperlipidemia Code(s): E78.5 - HYPERLIPIDEMIA, UNSPECIFIED as far i thin this is probably due uti plan ct current abx sensitivities noted rest as per the team mental status
[2018-03-11] MEDS ORDERED: PT OWN MED DRAWER 7, Y5N ONE (20:47)
--- NOTE | 2018-03-11 22:40 | PN ---
Progress Note, Physician History of Present Illness: No new changes - Current Medication List Current Medications: Active Medications Amlodipine Besylate (Norvasc -) 2.5 mg PO DAILY [facility] Last Admin: 03/11/18 10:18 Dose: 2.5 mg Aspirin (Ecotrin -) 81 mg PO DAILY [facility] Last Admin: 03/11/18 10:18 Dose: 81 mg Heparin Sodium (Porcine) (Heparin -) 5,000 unit SQ TID [facility] Last Admin: 03/11/18 21:19 Dose: 5,000 unit Dextrose/Sodium Chloride (D5-1/2ns -) 1,000 mls @ 75 mls/hr IV [facility] Last Admin: 03/11/18 10:19 Dose: 75 mls/hr Ceftriaxone Sodium 1 gm/ (Dextrose) 50 mls @ 100 mls/hr IVPB DAILY [facility]; Protocol Last Admin: 03/11/18 10:18 Dose: 100 mls/hr - Objective Vital Signs: Vital Signs Temperature 98.5 F 03/11/18 18:00 Pulse Rate 115 H 03/11/18 18:00 Respiratory Rate 20 03/11/18 18:00 Blood Pressure 140/93 03/11/18 18:00 O2 Sat by Pulse Oximetry (%) 100 03/11/18 09:00 Neck: Yes: WNL, Supple Cardiovascular: Yes: WNL, Regular Rate and Rhythm Respiratory: Yes: WNL, Regular, CTA Bilaterally Gastrointestinal: Yes: WNL, Normal Bowel Sounds, Soft Labs: CBC, BMP 03/09/18 05:15 03/09/18 05:15 INR, PTT INR 1.04 (0.83-1.09) 03/08/18 14:45 Problem List - Problems (1) Altered mental status Assessment/Plan: Ct scan head was unremarkable ?Cerebral dysfunction vs dementia Cont IV hydration R/O infectious encepalopathy l Code(s): R41.82 - ALTERED MENTAL STATUS, UNSPECIFIED Qualifiers: (2) Urinary tract infection Assessment/Plan: Cont IV ceftriaxone Urine culture (+) for E coli Change to po antibxs Code(s): N39.0 - URINARY TRACT INFECTION, SITE NOT SPECIFIED (3) Dementia Code(s): F03.90 - UNSPECIFIED DEMENTIA WITHOUT BEHAVIORAL DISTURBANCE Qualifiers: Dementia type: Alzheimer's disease Alzheimer's disease onset: unspecified onset Dementia behavioral disturbance: with behavioral disturbance Qualified Code(s): G30.9 - Alzheimer's disease, unspecified; F02.81 - Dementia in other diseases classified elsewhere with behavioral disturbance (4) Hypertension Code(s): I10 - ESSENTIAL (PRIMARY) HYPERTENSION (5) Hyperlipidemia Code(s): E78.5 - HYPERLIPIDEMIA, UNSPECIFIED
[2018-03-12] MEDS: DEXTROSE 5%-0.45% SALINE 1,000 ML IV SCH (03:16)
[2018-03-12] MEDS: HEPARIN NA (PORCINE) 5,000 UNITS/ML 1ML VIAL SQ SCH ×2 (05:54→15:08)
[2018-03-12 08:00] VITALS: PULSE 67
[2018-03-12] MEDS ORDERED: cefTRIAXone SODIUM 1 GM VIAL ONE (09:23)
[2018-03-12] MEDS ORDERED: DEXTROSE 5%-WATER - 50 ML IVPB ONE (09:24)
[2018-03-12 09:46] VITALS: BP 155/63
[2018-03-12] MEDS: CEFTRIAXONE 1 GM in DEXTROSE 5%-WATER - 50 ML IVPB SCH (09:47)
[2018-03-12] MEDS: amLODIPine BESYLATE 2.5 MG TABLET (FP) PO SCH (09:47)
[2018-03-12] MEDS: ASPIRIN COATED 81 MG TABLET.EC PO SCH (09:47)
[2018-03-12 10:13] LABS: CHOLESTEROL 192 mg/dL (50-200)
[2018-03-12 10:14] LABS: HDL CHOLESTEROL 47 mg/dL (40-60); TRIGLYCERIDES 90 mg/dL (0-150)
--- NOTE | 2018-03-12 13:44 | PN ---
Progress Note, Physician - Current Medication List Current Medications: Active Medications Amlodipine Besylate (Norvasc -) 2.5 mg PO DAILY [facility] Last Admin: 03/12/18 09:47 Dose: 2.5 mg Aspirin (Ecotrin -) 81 mg PO DAILY [facility] Last Admin: 03/12/18 09:47 Dose: 81 mg Heparin Sodium (Porcine) (Heparin -) 5,000 unit SQ TID [facility] Last Admin: 03/12/18 05:54 Dose: 5,000 unit Dextrose/Sodium Chloride (D5-1/2ns -) 1,000 mls @ 75 mls/hr IV ASDIR [facility] Last Admin: 03/12/18 03:16 Dose: Not Given Ceftriaxone Sodium 1 gm/ (Dextrose) 50 mls @ 100 mls/hr IVPB DAILY [facility]; Protocol Last Admin: 03/12/18 09:47 Dose: 100 mls/hr - Objective Vital Signs: Vital Signs Temperature 979 F H 03/12/18 09:46 Pulse Rate 67 03/12/18 09:46 Respiratory Rate 18 03/12/18 09:46 Blood Pressure 155/63 03/12/18 09:46 O2 Sat by Pulse Oximetry (%) 97 03/11/18 21:00 Labs: CBC, BMP 03/09/18 05:15 03/09/18 05:15 INR, PTT INR 1.04 (0.83-1.09) 03/08/18 14:45
[2018-03-12 15:16] VITALS: TEMP 97.9
--- NOTE | 2018-03-13 13:34 | EKG ---
Test Reason : Blood Pressure : / mmHG Vent. Rate : 066 BPM Atrial Rate : 066 BPM P-R Int : 144 ms QRS Dur : 082 ms QT Int : 388 ms P-R-T Axes : 049 031 063 degrees QTc Int : 406 ms SINUS RHYTHM WITH PREMATURE ATRIAL COMPLEXES NONSPECIFIC T WAVE ABNORMALITY ABNORMAL ECG WHEN COMPARED WITH ECG OF 19-JAN-2016 16:46, PREMATURE ATRIAL COMPLEXES ARE NOW PRESENT Confirmed by RANDY RAMIREZ, MAMADOU ([id number]) on 03/13/2018 1:34:04 PM Referred By: Confirmed By:MAMADOU PADILLA MD
== END 2018-03-12 16:04 | DRG 689 ==
LOC: JER 13:50 → JERBED 19:33 → UNDOADMIN 20:16 → J5S 03-09 17:54
PROVIDERS: ADMIT Internal Medicine; ATTEND Internal Medicine
DX: N39.0 Urinary tract infection, site not specified (principal); G93.41 Metabolic encephalopathy; E43 Unspecified severe protein-calorie malnutrition; Z68.1 Body mass index [BMI] 19.9 or less, adult; I10 Essential (primary) hypertension; R41.82 Altered mental status, unspecified; E78.5 Hyperlipidemia, unspecified; G30.9 Alzheimer's disease, unspecified; F02.80 Dementia in other diseases classified elsewhere, unspecified severity, without behavioral disturbance, psychotic disturbance, mood disturbance, and anxiety; M85.80 Other specified disorders of bone density and structure, unspecified site; L89.152 Pressure ulcer of sacral region, stage 2; M24.522 Contracture, left elbow; M24.521 Contracture, right elbow; M24.562 Contracture, left knee; M24.561 Contracture, right knee; Z86.718 Personal history of other venous thrombosis and embolism
CPT/HCPCS: 36415; 70450-TC; 71045-TC-FY; 72125-TC; 72170-TC-FY; 73562-TC-LT-FY; 80053; 80061; 81003; 81015; 82550; 83605; 83721; 83735; 84484; 85025; 85610; 85730; 86850; 86900; 86901; 87040; 87086; 87186; 93005; 93010; 93306-TC; 97116-GP; 97161-GP; 99283-25; J1644; J7030

== ENCOUNTER 2021-02-04 13:53 | Inpatient (IN) | payer OTHER ==
[2021-02-04] MEDS ORDERED: SODIUM CHLORIDE 1,000 ML IV STA (14:09)
[2021-02-04 15:04] LABS: BASO % 0.2 % (0-2.0); HEMATOCRIT 36.7 % (32.4-45.2); HEMOGLOBIN 12.2 GM/dL (10.7-15.3); LYMPH % 6.5 % (8-40); MCH 30.3 pg (25.7-33.7); MCHC 33.2 g/dl (32.0-36.0); MEAN CELL VOLUME 91.2 fl (80-96); MEAN PLT VOLUME 8.4 fl (7.5-11.1); MONO % 5.8 % (3.8-10.2); NEUT % 87.5 % (42.8-82.8); RBC 4.03 M/mm3 (3.60-5.2); RDW 12.8 % (11.6-15.6); WHITE BLOOD COUNT 17.7 K/mm3 (4.0-10.0)
[2021-02-04] MEDS ORDERED: ACETAMINOPHEN 1000 MG/100 ML VIAL IVPB ONE (15:06)
[2021-02-04 15:09] LABS: INR 1.24 (0.83-1.09); PROTHROMBIN TIME (PATIENT) 14.5 SEC (9.7-13.0)
[2021-02-04 15:12] LABS: ACTIVATED PTT 36.6 SECONDS (25.2-36.5)
[2021-02-04 15:21] LABS: PLATELET ESTIMATE DECREASED
[2021-02-04 15:22] LABS: CHLORIDE 108 mmol/L (98-107); SODIUM 138 mmol/L (136-145)
[2021-02-04 15:24] LABS: ANION GAP 12 MMOL/L (8-16); BLOOD UREA NITROGEN 23.9 mg/dL (7-18); CALCIUM 9.2 mg/dL (8.5-10.1); CO2 18 mmol/L (21-32)
[2021-02-04 15:25] LABS: ALBUMIN 2.2 g/dl (3.4-5.0); GLUCOSE,RANDOM 127 mg/dL (74-106)
[2021-02-04 15:28] LABS: CREATININE 1.7 mg/dL (0.55-1.3); SGOT/AST 21 U/L (15-37); SGPT/ALT 18 U/L (13-61)
[2021-02-04 15:29] LABS: TOT PROT 6.7 g/dl (6.4-8.2)
[2021-02-04 15:30] LABS: ALK PHOS 69 U/L (45-117)
[2021-02-04 15:53] LABS: LACTIC ACID 5.5 mmol/L (0.4-2.0)
[2021-02-04] MEDS ORDERED: ACETAMINOPHEN INJECTION 100 ML IVPB ONE (16:30)
[2021-02-04] MEDS ORDERED: PIPERACILLIN/TAZOB 3.375 GM 3.375 GM in DEXTROSE 5%-WATER - 50 ML IVPB ONE (16:47)
[2021-02-04] MEDS ORDERED: VANCOMYCIN 1 GM in D5W (PRE-DOCKED) 1,000 MG/250 ML IVPB ONE (16:47)
[2021-02-04] MEDS ORDERED: LIDOCAINE HCL 1%, 10 MG/ML (20ML VIAL) ONE (17:11)
[2021-02-04] MEDS ORDERED: SODIUM CHLORIDE 0.9% 500 ML INFUS.BAG IV ONE (18:41)
[2021-02-04] MEDS ORDERED: NOREPINEPHRINE D5W PREMIX 16,000 MCG/500 ML BAG IVPB SCH (18:45)
[2021-02-04] MEDS ORDERED: SODIUM CHLORIDE 0.45% 1,000 ML IV SCH (21:45)
[2021-02-04] MEDS: CHLORHEXIDINE GLUCONATE 4% CLEANSER FOR DECOLONIZATION TP SCH (22:00)
[2021-02-04] MEDS: HEPARIN NA (PORCINE) 5,000 UNITS/ML 1ML VIAL SQ SCH (22:21)
[2021-02-04] MEDS: SODIUM CHLORIDE 0.45% 1,000 ML IV SCH (22:24)
[2021-02-04] MEDS: MUPIROCIN 2% TOPICAL OINTMENT FOR DECOLONIZATION NS SCH (22:25)
[2021-02-04 23:12] LABS: EPI CELLS 8 /uL (0-25.1); HYALINE CASTS 3 /uL (0-3.1); PH,URINE 7.5 (5.0-8.0); URINE APPEARANCE CLEAR; URINE BACTERIA 7 /uL (0-1359); URINE BILIRUBIN 1+ (NEGATIVE); URINE COLOR DK YELLOW; URINE GLUCOSE (UA) NEGATIVE (NEGATIVE); URINE KETONE TRACE (NEGATIVE); URINE LEUK ESTERASE TRACE (NEGATIVE); URINE NITRITE NEGATIVE (NEGATIVE); URINE PROTEIN 1+ (NEGATIVE); URINE WBC 6 /uL (0-25.8)
[2021-02-04 23:33] LABS: PHOSPHOROUS 4.9 mg/dL (2.5-4.9)
[2021-02-05] MEDS ORDERED: PIPERACILLIN/TAZOB 2.25 GM 2.25 GM in DEXTROSE 5%-WATER - 50 ML IVPB SCH (02:00)
[2021-02-05] MEDS ORDERED: PIPERACILLIN/TAZOBACTAM 2.25 GM VIAL IVPB ONE ×3 (02:11→17:54)
[2021-02-05] MEDS ORDERED: DEXTROSE 5%-WATER - 50 ML IVPB ONE ×3 (02:12→17:54)
[2021-02-05] MEDS: PIPERACILLIN/TAZOB 2.25 GM 2.25 GM in DEXTROSE 5%-WATER - 50 ML IVPB SCH ×3 (02:46→17:56)
[2021-02-05 03:03] LABS: LACTIC ACID 5.8 mmol/L (0.4-2.0)
[2021-02-05] MEDS: HEPARIN NA (PORCINE) 5,000 UNITS/ML 1ML VIAL SQ SCH ×3 (06:29→21:11)
[2021-02-05 07:16] LABS: BASO % 0.1 % (0-2.0); HEMATOCRIT 30.3 % (32.4-45.2); LYMPH % 5.4 % (8-40); MCH 30.4 pg (25.7-33.7); MCHC 32.9 g/dl (32.0-36.0); MEAN CELL VOLUME 92.3 fl (80-96); MEAN PLT VOLUME 8.4 fl (7.5-11.1); MONO % 4.9 % (3.8-10.2); NEUT % 89.6 % (42.8-82.8); PLATELET COUNT 169 10^3/uL (134-434); RBC 3.28 M/mm3 (3.60-5.2); RDW 12.9 % (11.6-15.6); WHITE BLOOD COUNT 17.6 K/mm3 (4.0-10.0)
[2021-02-05 07:45] LABS: ALBUMIN 2.1 g/dl (3.4-5.0); CALCIUM 8.4 mg/dL (8.5-10.1)
[2021-02-05 07:46] LABS: BLOOD UREA NITROGEN 34.1 mg/dL (7-18)
[2021-02-05 07:49] LABS: CREATININE 2.3 mg/dL (0.55-1.3)
[2021-02-05 07:50] LABS: BILIRUBIN,TOTAL 0.9 mg/dL (0.2-1); TOT PROT 6.2 g/dl (6.4-8.2)
[2021-02-05 08:35] LABS: LACTIC ACID 4.2 mmol/L (0.4-2.0)
[2021-02-05] MEDS: SODIUM CHLORIDE 0.45% 1,000 ML IV SCH (09:38)
[2021-02-05] MEDS: MUPIROCIN 2% TOPICAL OINTMENT FOR DECOLONIZATION NS SCH ×2 (09:38→21:11)
[2021-02-05] MEDS ORDERED: LACTATED RINGERS SOLUTION 1,000 ML/1,000 ML INFUS.BAG IV STA (11:52)
[2021-02-05] MEDS ORDERED: LACTATED RINGERS SOLUTION 1,000 ML/1,000 ML INFUS.BAG IV SCH (12:00)
[2021-02-05] MEDS: LACTATED RINGERS SOLUTION 1,000 ML/1,000 ML INFUS.BAG IV SCH (14:43)
[2021-02-05] MEDS ORDERED: SODIUM CHLORIDE 1,000 ML IV STA (20:55)
[2021-02-05] MEDS: CHLORHEXIDINE GLUCONATE 4% CLEANSER FOR DECOLONIZATION TP SCH (21:12)
[2021-02-05] MEDS ORDERED: SODIUM CHLORIDE 500 ML IV STA (21:14)
[2021-02-06] MEDS ORDERED: PIPERACILLIN/TAZOBACTAM 2.25 GM VIAL IVPB ONE ×3 (01:20→16:27)
[2021-02-06] MEDS ORDERED: DEXTROSE 5%-WATER - 50 ML IVPB ONE ×3 (01:20→16:27)
[2021-02-06] MEDS: PIPERACILLIN/TAZOB 2.25 GM 2.25 GM in DEXTROSE 5%-WATER - 50 ML IVPB SCH ×3 (01:24→17:27)
[2021-02-06 06:45] LABS: HEMATOCRIT 26.3 % (32.4-45.2); HEMOGLOBIN 8.7 GM/dL (10.7-15.3); MCH 30.8 pg (25.7-33.7); MCHC 33.1 g/dl (32.0-36.0); MEAN CELL VOLUME 93.3 fl (80-96); PLATELET COUNT 169 10^3/uL (134-434); RBC 2.82 M/mm3 (3.60-5.2); RDW 12.6 % (11.6-15.6); WHITE BLOOD COUNT 15.2 K/mm3 (4.0-10.0)
[2021-02-06] MEDS: HEPARIN NA (PORCINE) 5,000 UNITS/ML 1ML VIAL SQ SCH ×3 (06:55→21:19)
[2021-02-06 07:02] LABS: CALCIUM 8.1 mg/dL (8.5-10.1)
[2021-02-06 07:03] LABS: ALBUMIN 1.8 g/dl (3.4-5.0); BLOOD UREA NITROGEN 34.3 mg/dL (7-18); MAGNESIUM 1.9 mg/dL (1.8-2.4)
[2021-02-06 07:06] LABS: CREATININE 1.6 mg/dL (0.55-1.3)
[2021-02-06 07:07] LABS: BILIRUBIN,TOTAL 0.6 mg/dL (0.2-1); TOT PROT 5.9 g/dl (6.4-8.2)
[2021-02-06] MEDS ORDERED: SODIUM CHLORIDE 0.9% 500 ML INFUS.BAG IV ONE (08:11)
[2021-02-06] MEDS: MUPIROCIN 2% TOPICAL OINTMENT FOR DECOLONIZATION NS SCH ×2 (09:14→21:18)
[2021-02-06 10:30] LABS: ANISOCYTOSIS 0; HELMET CELLS 0; HOWELL-JOLLY BODIES 0; MACROCYTOSIS 0; OVALOCYTE 0; PLATELET ESTIMATE NORMAL; ROULEAU 0; SICKELED CELLS 0; TARGET CELLS 0; TEAR DROP CELLS 0; TOXIC GRANULATION 0
[2021-02-06 16:31] VITALS: BMI 16.6
[2021-02-06] MEDS: LACTATED RINGERS SOLUTION 1,000 ML/1,000 ML INFUS.BAG IV SCH (17:33)
[2021-02-06] MEDS: CHLORHEXIDINE GLUCONATE 4% CLEANSER FOR DECOLONIZATION TP SCH (21:19)
[2021-02-07] MEDS ORDERED: DEXTROSE 5%-WATER - 50 ML IVPB ONE ×3 (02:21→18:35)
[2021-02-07] MEDS ORDERED: PIPERACILLIN/TAZOBACTAM 2.25 GM VIAL IVPB ONE ×2 (02:21→09:38)
[2021-02-07] MEDS: PIPERACILLIN/TAZOB 2.25 GM 2.25 GM in DEXTROSE 5%-WATER - 50 ML IVPB SCH ×2 (02:23→09:48)
[2021-02-07] MEDS: HEPARIN NA (PORCINE) 5,000 UNITS/ML 1ML VIAL SQ SCH ×3 (05:49→21:08)
[2021-02-07 07:01] LABS: HEMATOCRIT 22.5 % (32.4-45.2); HEMOGLOBIN 7.4 GM/dL (10.7-15.3); MCH 30.1 pg (25.7-33.7); MCHC 32.6 g/dl (32.0-36.0); MEAN CELL VOLUME 92.2 fl (80-96); MEAN PLT VOLUME 9.8 fl (7.5-11.1); PLATELET COUNT 167 10^3/uL (134-434); RBC 2.44 M/mm3 (3.60-5.2); RDW 12.8 % (11.6-15.6); WHITE BLOOD COUNT 14.1 K/mm3 (4.0-10.0)
[2021-02-07 07:22] LABS: BLOOD UREA NITROGEN 35.3 mg/dL (7-18); CALCIUM 7.9 mg/dL (8.5-10.1)
[2021-02-07 07:23] LABS: ALBUMIN 1.5 g/dl (3.4-5.0); MAGNESIUM 1.9 mg/dL (1.8-2.4)
[2021-02-07 07:25] LABS: CREATININE 1.1 mg/dL (0.55-1.3)
[2021-02-07 07:26] LABS: PHOSPHOROUS 3.1 mg/dL (2.5-4.9)
[2021-02-07 07:27] LABS: BILIRUBIN,TOTAL 0.6 mg/dL (0.2-1); TOT PROT 5.3 g/dl (6.4-8.2)
[2021-02-07] MEDS: MUPIROCIN 2% TOPICAL OINTMENT FOR DECOLONIZATION NS SCH (09:48)
[2021-02-07] MEDS: LACTATED RINGERS SOLUTION 1,000 ML/1,000 ML INFUS.BAG IV SCH ×2 (13:13→18:37)
[2021-02-07 14:35] LABS: PLATELET ESTIMATE NORMAL
[2021-02-07] MEDS ORDERED: PIPERACILLIN/TAZOB 3.375 GM 3.375 GM in DEXTROSE 5%-WATER - 50 ML IVPB ONE (18:00)
[2021-02-07] MEDS ORDERED: PIPERACILLIN/TAZOB 2.25 GM 2.25 GM in DEXTROSE 5%-WATER - 50 ML IVPB SCH (18:00)
[2021-02-07] MEDS ORDERED: PIPERACILLIN/TAZOBACTAM 3.375 GM VIAL IVPB ONE (18:35)
[2021-02-07] MEDS ORDERED: MUPIROCIN 2% TOPICAL OINTMENT FOR DECOLONIZATION NS SCH (22:00)
[2021-02-07] MEDS ORDERED: CHLORHEXIDINE GLUCONATE 4% CLEANSER FOR DECOLONIZATION TP SCH (22:00)
[2021-02-08] MEDS ORDERED: DEXTROSE 5%-WATER - 50 ML IVPB ONE ×4 (03:36→20:46)
[2021-02-08] MEDS ORDERED: PIPERACILLIN/TAZOBACTAM 2.25 GM VIAL IVPB ONE ×4 (03:36→20:46)
[2021-02-08] MEDS: PIPERACILLIN/TAZOB 2.25 GM 2.25 GM in DEXTROSE 5%-WATER - 50 ML IVPB SCH ×4 (03:42→21:10)
[2021-02-08] MEDS: HEPARIN NA (PORCINE) 5,000 UNITS/ML 1ML VIAL SQ SCH ×3 (05:38→21:11)
[2021-02-08] MEDS: LACTATED RINGERS SOLUTION 1,000 ML/1,000 ML INFUS.BAG IV SCH ×3 (09:32→23:49)
[2021-02-09] MEDS ORDERED: DEXTROSE 5%-WATER - 50 ML IVPB ONE ×5 (01:57→21:27)
[2021-02-09] MEDS ORDERED: PIPERACILLIN/TAZOBACTAM 2.25 GM VIAL IVPB ONE ×5 (01:57→21:27)
[2021-02-09] MEDS ORDERED: PIPERACILLIN/TAZOB 2.25 GM 2.25 GM in DEXTROSE 5%-WATER - 50 ML IVPB SCH (03:00)
[2021-02-09] MEDS: PIPERACILLIN/TAZOB 2.25 GM 2.25 GM in DEXTROSE 5%-WATER - 50 ML IVPB SCH ×4 (03:04→21:45)
[2021-02-09] MEDS: HEPARIN NA (PORCINE) 5,000 UNITS/ML 1ML VIAL SQ SCH ×3 (05:28→21:45)
[2021-02-09 10:12] LABS: ALBUMIN 1.6 g/dl (3.4-5.0); BLOOD UREA NITROGEN 28.4 mg/dL (7-18); CALCIUM 8.6 mg/dL (8.5-10.1)
[2021-02-09 10:16] LABS: CREATININE 0.9 mg/dL (0.55-1.3)
[2021-02-09 10:17] LABS: BILIRUBIN,TOTAL 1.4 mg/dL (0.2-1); TOT PROT 5.6 g/dl (6.4-8.2)
[2021-02-09] MEDS: POTASSIUM CHLORIDE 20 MEQ in AMINO ACIDS 4.25%/D5W 1,000 ML IV SCH (15:58)
[2021-02-09] MEDS: KCL 10 MEQ IVPB 10 MEQ/100 ML INFUS.BAG IVPB SCH ×2 (15:58→20:02)
[2021-02-10] MEDS ORDERED: DEXTROSE 5%-WATER - 50 ML IVPB ONE ×4 (01:43→20:57)
[2021-02-10] MEDS ORDERED: PIPERACILLIN/TAZOBACTAM 2.25 GM VIAL IVPB ONE ×4 (01:43→20:57)
[2021-02-10] MEDS: PIPERACILLIN/TAZOB 2.25 GM 2.25 GM in DEXTROSE 5%-WATER - 50 ML IVPB SCH ×4 (02:40→21:28)
[2021-02-10] MEDS: HEPARIN NA (PORCINE) 5,000 UNITS/ML 1ML VIAL SQ SCH ×3 (06:03→21:28)
[2021-02-10 08:59] LABS: BASO % 0.1 % (0-2.0); EOS % 0.2 % (0-4.5); HEMATOCRIT 19.7 % (32.4-45.2); LYMPH % 13.5 % (8-40); MCH 30.6 pg (25.7-33.7); MCHC 33.2 g/dl (32.0-36.0); MEAN CELL VOLUME 92.1 fl (80-96); MONO % 10.4 % (3.8-10.2); NEUT % 75.8 % (42.8-82.8); PLATELET COUNT 277 10^3/uL (134-434); RBC 2.13 M/mm3 (3.60-5.2); RDW 13.1 % (11.6-15.6); WHITE BLOOD COUNT 7.7 K/mm3 (4.0-10.0)
[2021-02-10 09:05] LABS: HEMOGLOBIN 6.5 GM/dL (10.7-15.3)
[2021-02-10 09:09] LABS: CALCIUM 8.6 mg/dL (8.5-10.1)
[2021-02-10 09:10] LABS: ALBUMIN 1.4 g/dl (3.4-5.0); BLOOD UREA NITROGEN 37.3 mg/dL (7-18); MAGNESIUM 2.1 mg/dL (1.8-2.4)
[2021-02-10 09:15] LABS: TOT PROT 5.2 g/dl (6.4-8.2)
[2021-02-10] MEDS ORDERED: POTASSIUM PHOSPHATE 15 MM in SODIUM CHLORIDE 250 ML IVPB ONE (15:00)
[2021-02-10] MEDS: POTASSIUM CHLORIDE 20 MEQ in AMINO ACIDS 4.25%/D5W 1,000 ML IV SCH (15:11)
[2021-02-11] MEDS ORDERED: PIPERACILLIN/TAZOBACTAM 2.25 GM VIAL IVPB ONE ×4 (01:58→21:44)
[2021-02-11] MEDS ORDERED: DEXTROSE 5%-WATER - 50 ML IVPB ONE ×4 (01:58→21:45)
[2021-02-11] MEDS: PIPERACILLIN/TAZOB 2.25 GM 2.25 GM in DEXTROSE 5%-WATER - 50 ML IVPB SCH ×4 (02:03→21:56)
[2021-02-11] MEDS: HEPARIN NA (PORCINE) 5,000 UNITS/ML 1ML VIAL SQ SCH ×3 (06:15→21:56)
[2021-02-11 11:45] LABS: HEMATOCRIT 20.4 % (32.4-45.2); MCHC 31.2 g/dl (32.0-36.0); MEAN CELL VOLUME 96.3 fl (80-96); MEAN PLT VOLUME 7.9 fl (7.5-11.1); PLATELET COUNT 316 10^3/uL (134-434); RBC 2.11 M/mm3 (3.60-5.2); WHITE BLOOD COUNT 15.5 K/mm3 (4.0-10.0)
[2021-02-11 11:46] LABS: CALCIUM 8.4 mg/dL (8.5-10.1)
[2021-02-11 11:47] LABS: ALBUMIN 1.5 g/dl (3.4-5.0); BLOOD UREA NITROGEN 47.7 mg/dL (7-18); HEMOGLOBIN 6.3 GM/dL (10.7-15.3)
[2021-02-11 11:50] LABS: CREATININE 1.2 mg/dL (0.55-1.3)
[2021-02-11 11:52] LABS: BILIRUBIN,TOTAL 1.1 mg/dL (0.2-1); TOT PROT 5.4 g/dl (6.4-8.2)
[2021-02-11 13:27] LABS: ANISOCYTOSIS 2+; MACROCYTOSIS 0; OVALOCYTE 1+; PLATELET ESTIMATE NORMAL
[2021-02-11] MEDS ORDERED: PT OWN MED DRAWER 7, Y5N ONE ×2 (14:25→18:00)
[2021-02-11] MEDS: POTASSIUM CHLORIDE 20 MEQ in AMINO ACIDS 4.25%/D5W 1,000 ML IV SCH (18:12)
[2021-02-12] MEDS ORDERED: PIPERACILLIN/TAZOBACTAM 2.25 GM VIAL IVPB ONE ×4 (01:58→22:16)
[2021-02-12] MEDS ORDERED: DEXTROSE 5%-WATER - 50 ML IVPB ONE ×4 (01:59→22:16)
[2021-02-12] MEDS: PIPERACILLIN/TAZOB 2.25 GM 2.25 GM in DEXTROSE 5%-WATER - 50 ML IVPB SCH ×4 (02:13→22:19)
[2021-02-12] MEDS: HEPARIN NA (PORCINE) 5,000 UNITS/ML 1ML VIAL SQ SCH ×3 (05:30→22:19)
[2021-02-12 11:01] LABS: HEMATOCRIT 21.9 % (32.4-45.2); HEMOGLOBIN 7.1 GM/dL (10.7-15.3); MCH 29.7 pg (25.7-33.7); MCHC 32.6 g/dl (32.0-36.0); MEAN CELL VOLUME 91.1 fl (80-96); MEAN PLT VOLUME 8.3 fl (7.5-11.1); PLATELET COUNT 218 10^3/uL (134-434); RDW 14.2 % (11.6-15.6); WHITE BLOOD COUNT 26.6 K/mm3 (4.0-10.0)
[2021-02-12 11:29] LABS: CALCIUM 8.3 mg/dL (8.5-10.1)
[2021-02-12 11:30] LABS: ALBUMIN 1.5 g/dl (3.4-5.0); BLOOD UREA NITROGEN 69.4 mg/dL (7-18)
[2021-02-12 11:33] LABS: CREATININE 1.8 mg/dL (0.55-1.3); PHOSPHOROUS 3.4 mg/dL (2.5-4.9)
[2021-02-12 11:34] LABS: BILIRUBIN,TOTAL 1.1 mg/dL (0.2-1)
[2021-02-12 11:35] LABS: TOT PROT 5.3 g/dl (6.4-8.2)
[2021-02-12 13:55] LABS: ANISOCYTOSIS 0; MACROCYTOSIS 0; PLATELET ESTIMATE NORMAL; ROULEAU 1+
[2021-02-12] MEDS: POTASSIUM CHLORIDE 20 MEQ in AMINO ACIDS 4.25%/D5W 1,000 ML IV SCH (15:01)
[2021-02-13] MEDS ORDERED: PIPERACILLIN/TAZOBACTAM 2.25 GM VIAL IVPB ONE ×4 (03:50→20:27)
[2021-02-13] MEDS ORDERED: DEXTROSE 5%-WATER - 50 ML IVPB ONE ×4 (03:50→20:27)
[2021-02-13] MEDS: PIPERACILLIN/TAZOB 2.25 GM 2.25 GM in DEXTROSE 5%-WATER - 50 ML IVPB SCH ×4 (03:53→20:48)
[2021-02-13] MEDS: HEPARIN NA (PORCINE) 5,000 UNITS/ML 1ML VIAL SQ SCH ×3 (05:48→20:59)
[2021-02-13] MEDS ORDERED: FUROSEMIDE 40 MG/4 ML INJECTABLE VIAL IVPUSH ONE (09:45)
[2021-02-13 12:57] LABS: CALCIUM 8.4 mg/dL (8.5-10.1)
[2021-02-13 13:02] LABS: CREATININE 2.1 mg/dL (0.55-1.3)
[2021-02-13] MEDS: POTASSIUM CHLORIDE 20 MEQ in AMINO ACIDS 4.25%/D5W 1,000 ML IV SCH (16:13)
[2021-02-14] MEDS ORDERED: DEXTROSE 5%-WATER - 50 ML IVPB ONE ×4 (01:04→21:24)
[2021-02-14] MEDS ORDERED: PIPERACILLIN/TAZOBACTAM 2.25 GM VIAL IVPB ONE ×4 (01:04→21:24)
[2021-02-14] MEDS: PIPERACILLIN/TAZOB 2.25 GM 2.25 GM in DEXTROSE 5%-WATER - 50 ML IVPB SCH ×4 (02:06→21:40)
[2021-02-14] MEDS: HEPARIN NA (PORCINE) 5,000 UNITS/ML 1ML VIAL SQ SCH ×2 (06:01→15:43)
[2021-02-14 12:17] LABS: HEMATOCRIT 22.2 % (32.4-45.2); HEMOGLOBIN 7.1 GM/dL (10.7-15.3); MCHC 31.9 g/dl (32.0-36.0); MEAN CELL VOLUME 94.1 fl (80-96); MEAN PLT VOLUME 8.4 fl (7.5-11.1); PLATELET COUNT 306 10^3/uL (134-434); RBC 2.36 M/mm3 (3.60-5.2); RDW 14.4 % (11.6-15.6)
[2021-02-14 12:24] LABS: WHITE BLOOD COUNT 32.9 K/mm3 (4.0-10.0)
[2021-02-14 12:37] LABS: CALCIUM 8.7 mg/dL (8.5-10.1)
[2021-02-14 12:38] LABS: ALBUMIN 1.5 g/dl (3.4-5.0); BLOOD UREA NITROGEN 93.6 mg/dL (7-18)
[2021-02-14 12:41] LABS: CREATININE 2.4 mg/dL (0.55-1.3)
[2021-02-14 12:42] LABS: BILIRUBIN,TOTAL 2.1 mg/dL (0.2-1); TOT PROT 5.5 g/dl (6.4-8.2)
[2021-02-14 13:25] LABS: ANISOCYTOSIS 2+; MACROCYTOSIS 0; PLATELET ESTIMATE NORMAL
[2021-02-14] MEDS: morphine SULFATE 4 MG/ML VIAL IM PRN ×3 (13:32→21:41)
[2021-02-14] MEDS: AMINO ACIDS 4.25%/D5W 1,000 ML IV SCH (15:35)
[2021-02-15] MEDS ORDERED: DEXTROSE 5%-WATER - 50 ML IVPB ONE ×3 (02:13→15:15)
[2021-02-15] MEDS ORDERED: PIPERACILLIN/TAZOBACTAM 2.25 GM VIAL IVPB ONE ×3 (02:13→15:15)
[2021-02-15] MEDS: PIPERACILLIN/TAZOB 2.25 GM 2.25 GM in DEXTROSE 5%-WATER - 50 ML IVPB SCH ×3 (02:22→15:47)
[2021-02-15] MEDS ORDERED: ACETAMINOPHEN 650 MG SUPP.RECT PR PRN (09:16)
[2021-02-15] MEDS ORDERED: BISACODYL 10 MG SUPP.RECT PR PRN (09:17)
[2021-02-15] MEDS ORDERED: LORazepam 2 MG/ML SDV VIAL IVPB PRN (09:23)
[2021-02-15] MEDS: AMINO ACIDS 4.25%/D5W 1,000 ML IV SCH (12:33)
[2021-02-16] MEDS: AMINO ACIDS 4.25%/D5W 1,000 ML IV SCH ×2 (06:53→19:22)
[2021-02-17] MEDS: AMINO ACIDS 4.25%/D5W 1,000 ML IV SCH ×2 (08:56→13:20)
[2021-02-17] MEDS: morphine SULFATE 4 MG/ML VIAL IVPUSH PRN (10:08)
[2021-02-18] MEDS: morphine SULFATE 4 MG/ML VIAL IVPUSH PRN ×2 (01:45→17:31)
[2021-02-18] MEDS: COLLAGENASE CLOSTRIDIUM HIST. 30 GRAMS TUBE TP SCH ×2 (06:07→10:48)
[2021-02-18] MEDS: AMINO ACIDS 4.25%/D5W 1,000 ML IV SCH ×2 (12:44→23:00)
[2021-02-19] MEDS: morphine SULFATE 4 MG/ML VIAL IVPUSH PRN ×2 (05:42→10:29)
[2021-02-19 07:38] VITALS: PULSE 85; TEMP 97.4
[2021-02-19 08:11] VITALS: BP 132/91
[2021-02-19] MEDS: COLLAGENASE CLOSTRIDIUM HIST. 30 GRAMS TUBE TP SCH (10:30)
[2021-02-19] MEDS: AMINO ACIDS 4.25%/D5W 1,000 ML IV SCH (11:40)
[2021-02-19] MEDS ORDERED: MORPHINE SULFATE/0.9% NACL/PF 100 MG/100 ML BAG IVPB SCH (12:30)
== END 2021-02-19 22:54 | disposition expired | DRG 871 ==
LOC: JER 13:53 → JICU 20:03 → JER 20:20 → JICU 20:20 → J7W 02-07 16:52
PROVIDERS: ADMIT Internal Medicine Pulmonary Disease; ATTEND Family Medicine
PROC: 30233N1 Transfusion of Nonautologous Red Blood Cells into Peripheral Vein, Percutaneous Approach (ICD-10-PCS; principal; 2021-02-10)
DX: A41.81 Sepsis due to Enterococcus (principal); R65.21 Severe sepsis with septic shock; R53.2 Functional quadriplegia; J18.9 Pneumonia, unspecified organism; J96.01 Acute respiratory failure with hypoxia; N17.0 Acute kidney failure with tubular necrosis; R64 Cachexia; Z68.1 Body mass index [BMI] 19.9 or less, adult; E87.2 Acidosis; E46 Unspecified protein-calorie malnutrition; I10 Essential (primary) hypertension; E78.5 Hyperlipidemia, unspecified; G30.9 Alzheimer's disease, unspecified; F02.80 Dementia in other diseases classified elsewhere, unspecified severity, without behavioral disturbance, psychotic disturbance, mood disturbance, and anxiety; M85.80 Other specified disorders of bone density and structure, unspecified site; L89.150 Pressure ulcer of sacral region, unstageable; L89.322 Pressure ulcer of left buttock, stage 2; E86.0 Dehydration; R62.7 Adult failure to thrive; D64.9 Anemia, unspecified; E87.6 Hypokalemia; I11.0 Hypertensive heart disease with heart failure; I50.9 Heart failure, unspecified
CPT/HCPCS: 36415; 36430; 36511; 71045-TC-FY; 76775-TC; 80048; 80053; 81003; 82436; 82570; 82962; 83605; 83735; 84100; 84133; 84300; 84484; 85025; 85610; 85730; 86850; 86900; 86901; 86922; 87040; 87070; 87086; 87186; 87205; 93005; 93010; 93306-TC; 99285-25; C9803; G0480; J0131; J1644; P9038; P9058; U0003; U0005